=== PATIENT | female | born 1945 | race Caucasian/White ===

== ENCOUNTER 2019-09-09 19:21 | Emergency (ER) | payer MEDICARE, OTHER ==
[~2019-09-09] VITALS: Ht 170.2 cm; Wt 81.7 kg
[2019-09-09] MEDS ORDERED: FISH OIL 1,001000 M2 PO (19:34)
[2019-09-09] MEDS ORDERED: CALCIUM 500 +1 EAC1 PO (19:35)
[2019-09-09] MEDS ORDERED: IRON159 MG PO (19:35)
[2019-09-09] MEDS ORDERED: WOMEN'S MULTI200 MCG PO (19:36)
[2019-09-09] MEDS ORDERED: OMEPRAZOLE 20 M20 M1 PO (19:36)
[2019-09-09] MEDS ORDERED: B12 ACTIVE1000 MCG PO (19:36)
[2019-09-09] MEDS ORDERED: GLIPIZIDE 10 MG10 MG PO (19:36)
[2019-09-09] MEDS ORDERED: JARDIANCE10 MG PO (19:37)
[2019-09-09] MEDS ORDERED: LIPITOR40 MG PO (19:37)
[2019-09-09] MEDS ORDERED: CHOLESTYRAMINE378 GM PO (19:38)
[2019-09-09] MEDS ORDERED: PREMARIN30 GM TOP (19:38)
[2019-09-09] MEDS ORDERED: TYLENOL325 M1 PO (19:39)
[2019-09-09] MEDS ORDERED: VALTREX 500 MG500 M1 PER TUBE (19:39)
[2019-09-09 20:29] LABS: ABSOLUTE BASOPHILS 0.1 thou/uL (0.0-0.2); ABSOLUTE EOSINOPHILS 0.2 thou/uL (0.0-0.7); ABSOLUTE LYMPHOCYTES 1.9 thou/uL (0.8-5.3); ABSOLUTE MONOCYTES 0.8 thou/uL (0.0-1.2); ABSOLUTE NEUTROPHILS 7.3 thou/uL (1.6-8.1); BASOPHILS 0.7 %; HEMOGLOBIN 13.6 gm/dL (12.0-15.0); LYMPHOCYTES 18.6 %; MCH 31.4 pg (26.0-34.0); MCHC 34.8 g/dL (28.0-37.0); MCV 90.2 fL (80.0-100.0); NUCLEATED RBCS 0 /100WBC; PLATELET COUNT* 372 thou/uL (150-400); POLYS 70.7 %; RBC 4.33 mil/uL (4.20-5.00); RDW-CV 13.3 % (10.5-14.5); WBC 10.4 thou/uL (4.0-11.0)
[2019-09-09 20:31] LABS: CALCIUM 8.9 mg/dL (8.5-10.1); CREATININE 1.6 mg/dL (0.6-1.3); POTASSIUM 4.1 mmol/L (3.5-5.1)
[2019-09-09] MEDS ORDERED: AUGMENTIN 500-1 EACH PO (20:55)
[2019-09-09] MEDS ORDERED: ZOFRAN ODT4 MG PO (20:55)
[2019-09-09] MEDS ORDERED: DIFLUCAN150 MG PO (20:55)
[2019-09-09 21:13] VITALS: BP 125/87
== END 2019-09-09 21:14 | disposition home or self-care (01) ==
LOC: M.ERS 19:21
PROVIDERS: Personal Emergency Response Attendant
DX: L03.115 Cellulitis of right lower limb (principal); Z88.6 Allergy status to analgesic agent